=== PATIENT | male | born 1960 | race Caucasian/White ===

== ENCOUNTER 2016-05-24 14:48 | Emergency (ER) | payer BC ==
[2016-05-24 15:13] VITALS: BP 152/94
--- NOTE | 2016-05-24 15:36 | UC ---
Lower Extremity/Ankle HPI - HPI Summary HPI Summary: ONE WEEK HISTORY OF LEFT CALF PAIN, BEGAN AFTER TRIP TO [facility]. NO CHEST PAIN, NO SHORTNESS OF BREATH. NO PREVIOUS HISTORY OF CLOT OR PE'S NO FAMILY HISTORY. NO CANCER HISTORY. NONSMOKER. NO REDNESS. MILD EDEMA AROUND ANKLE. - History of Current Complaint Chief Complaint: UCLowerExtremity Stated Complaint: LEFT CALF PAIN Time Seen by Provider: 05/24/16 15:18 Hx Obtained From: Patient Onset/Duration: Gradual Onset, Lasting Weeks, Still Present Severity Initially: Mild Severity Currently: Mild Aggravating Factor(s): Ambulation Able to Bear Weight: Yes - Risk Factors Gout Risk Factors: Age Over 40, Male DVT Risk Factors: Recent Travel Septic Arthritis Risk Factor: Negative - Allergies/Home Medications Allergies/Adverse Reactions: Allergies Allergy/AdvReac Type Severity Reaction Status Date / Time No Known Allergies Allergy Verified 05/24/16 15:07 PMH/Surg Hx/FS Hx/Imm Hx Previously Healthy: Yes Endocrine History Of: Denies: Diabetes, Thyroid Disease, Hyperthyroidism, Hypothyroidism Cardiovascular History Of: Denies: Cardiac Disorders, Hypertension Respiratory History Of: Denies: COPD, Asthma GI/ History Of: Denies: Ulcer Neurological History Of: Denies: TIA, Seizures Psychological History Of: Denies: Anxiety, Depression - Surgical History Surgical History: Yes Surgery Procedure, Year, and Place: [facility] - Family History Known Family History: Negative: Cardiac Disease, Respiratory Disease, Blood Disorder - Social History Occupation: Employed Full-time - MANAGER [employer] Alcohol Use: None Substance Use Type: None Smoking Status (MU): Never Smoked Tobacco Have You Smoked in the Last Year: No Review of Systems Constitutional: Negative Skin: Negative Eyes: Negative ENT: Negative Respiratory: Negative Gastrointestinal: Negative Genitourinary: Negative Motor: Negative Neurovascular: Negative Musculoskeletal: Calf Tenderness, Myalgia - LEFT CALF PAIN Neurological: Negative Psychological: Negative All Other Systems Reviewed And Are Negative: Yes Physical Exam Triage Information Reviewed: Yes Appearance: Well-Appearing, No Pain Distress, Well-Nourished Vital Signs: Initial Vital Signs Temp 98 F 05/24/16 15:07 Pulse 67 05/24/16 15:07 Resp 18 05/24/16 15:07 BP 152/94 05/24/16 15:07 Pulse Ox 97 05/24/16 15:07 Vital Signs Reviewed: Yes Eye Exam: Normal Eyes: Positive: Conjunctiva Clear ENT Exam: Normal ENT: Positive: Normal ENT inspection, Hearing grossly normal, Pharynx normal, TMs normal Dental Exam: Normal Neck exam: Normal Neck: Positive: Supple, Nontender, No Lymphadenopathy Respiratory Exam: Normal Respiratory: Positive: Chest non-tender, Lungs clear, Normal breath sounds, No respiratory distress, No accessory muscle use Cardiovascular Exam: Normal Cardiovascular: Positive: RRR, No Murmur, Pulses Normal Abdominal Exam: Normal Abdomen Description: Positive: Nontender, No Organomegaly Musculoskeletal Exam: Normal Musculoskeletal: Positive: Strength Intact, ROM Intact, Edema @ - VERY MILD LEFT ANKLE Neurological Exam: Normal Psychological Exam: Normal Skin Exam: Normal Lower Extremity Course/Dx - Course Course Of Treatment: NO ULTRSOUND AVAILABLE AT CONVENIENT CARE. PATIENT ELECTED TO GO TO ED BY PRIVATE CAR. - Differential Dx/Diagnosis Differential Diagnosis/HQI/PQRI: Arthritis, Cellulitis, DVT, Fracture (Closed), Phlebitis, Sprain, Strain Provider Diagnoses: LEFT CALF PAIN - Physician Notifications Discussed Patient Care With: DR ESPINO Time Discussed With Above Provider: 15:20 Instructed by Provider To: MD Will See In ED Discharge - Discharge Plan Condition: Stable Disposition: [facility]
== END 2016-05-24 15:37 | disposition short-term general hospital (02) ==
LOC: UCEAST 14:48
DX: M79.662 Pain in left lower leg (principal)
CPT/HCPCS: 99212; G0463

== ENCOUNTER 2016-05-24 15:58 | Emergency (ER) | payer BC ==
--- NOTE | 2016-05-24 17:10 | RAD ---
INDICATION: Pain and swelling. COMPARISON: None TECHNIQUE: Duplex interrogation of the Lowerextremity was performed. FINDINGS: Deep veins: The common femoral, great saphenous, profunda femoris, proximal, mid, and distal deep femoral, popliteal, and peroneal veins are patent. There is thrombosis of one of the posterior tibial veins and the paired posterior tibial vein may also contain thrombus. There is normal compressibility, augmentation, and phasic flow. Superficial veins: There are no findings of superficial thrombophlebitis. Popliteal fossa:There is no evidence of a popliteal cyst. Soft tissues:There are no soft tissue abnormalities. IMPRESSION: DEEP VENOUS THROMBOSIS IN ONE OR POSSIBLY BOTH OF THE POSTERIOR TIBIAL VEINS. THE REMAINING VENOUS STRUCTURES ARE PATENT.
[2016-05-24 18:41] LABS: Hematocrit 50 % (42-52); Hemoglobin 17.2 g/dl (14.0-18.0); Mean Corpuscular HGB Conc 35 g/dl (31-36); Mean Corpuscular Hemoglobin 32 pg (27-31); Mean Corpuscular Volume 93 fL (80-94); Mean Platelet Volume 8 um3 (7.4-10.4); Red Blood Count 5.36 10^6/ul (4.0-5.4); Red Cell Distribution Width 12 % (10.5-15); White Blood Count 7.4 10^3/ul (3.5-10.8)
[2016-05-24 18:55] LABS: Albumin 4.2 g/dL (3.2-5.2); BUN/Creatinine Ratio 17.5 (8-20); Calcium 9.5 mg/dL (8.6-10.3); EGFR African American 96.1 (>60); EGFR Non-African American 74.7 (>60); Globulin 3.5 g/dL (2-4); Potassium 3.6 mmol/L (3.5-5.0); Total Bilirubin 0.5 mg/dL (0.2-1.0); Total Protein 7.7 g/dL (6.4-8.9)
[2016-05-24] MEDS ORDERED: Rivaroxaban TAB(*) 15 MG PO ONE (19:19)
[2016-05-24 20:05] VITALS: BP 149/93
--- NOTE | 2016-05-26 13:36 | ED ---
Lower Extremity - HPI Summary HPI Summary: Patient arrives to ED with CC of left calf pain X 1 week. Otherwise healthy. States he has been traveling often and arrived home 1 week ago. Patient endorses left ankle and calf swelling, pain behind the knee which is worse while walking. Describes the discomfort as a tightness which improves while massaging the area. Denies MENDES, ankle or knee pain. Denies blood or clotting disorders. Denies significant health history and takes no medications. Patient is active and runs several miles daily. Denies recent surgery or history of previous DVT's. Denies SOB. Denies numbness or tingling in lower extremity. - History of Current Complaint Chief Complaint: EDExtremityLower Stated Complaint: LEG PAIN/RECENT AIR TRAVEL-[facility] XFER Time Seen by Provider: 05/24/16 16:18 Hx Obtained From: Patient Onset/Duration: Weeks Severity Initially: Moderate Severity Currently: Moderate Pain Intensity: 5 Pain Scale Used: 0-10 Numeric Timing: Constant Location: Is Discrete @ - posterior proximal calf Character Of Pain: Dull, Aching Associated Signs And Symptoms: Positive: Swelling Aggravating Factor(s): Movement, Other - walking Alleviating Factor(s): Rest Able to Bear Weight: Yes Legs: 1 - cramping pain - Risk Factors Gout Risk Factors: Age Over 40, Male DVT Risk Factors: Recent Travel Septic Arthritis Risk Factor: Negative - Allergies/Home Medications Allergies/Adverse Reactions: Allergies Allergy/AdvReac Type Severity Reaction Status Date / Time No Known Allergies Allergy Verified 05/24/16 16:00 PMH/Surg Hx/FS Hx/Imm Hx Previously Healthy: Yes Endocrine/Hematology History: Denies: Hx Diabetes, Hx Thyroid Disease Cardiovascular History: Denies: Hx Hypercholesterolemia, Hx Hypertension, Hx Peripheral Vascular Disease Respiratory History: Denies: Hx Asthma, Hx Chronic Obstructive Pulmonary Disease (COPD) GI History: Denies: Hx Ulcer Musculoskeletal History: Denies: Hx Arthritis, Hx Osteoporosis Sensory History: Denies: Hx Cataracts, Hx Contacts or Glasses, Hx Glaucoma Opthamlomology History: Denies: Hx Cataracts, Hx Contacts or Glasses, Hx Glaucoma Neurological History: Denies: Hx Headaches, Hx Seizures, Hx Transient Ischemic Attacks (TIA) Psychiatric History: Denies: Hx Anxiety, Hx Depression - Surgical History Surgery Procedure, Year, and Place: [facility] - Immunization History Hx Pertussis Vaccination: No Immunizations Up to Date: No Infectious Disease History: No Infectious Disease History: Reports: Hx Shingles Denies: Hx Hepatitis, Hx Human Immunodeficiency Virus (HIV), Traveled Outside the [place] in Last 30 Days - Family History Known Family History: Negative: Cardiac Disease, Respiratory Disease, Blood Disorder - Social History Occupation: Employed Full-time Lives: With Family Alcohol Use: None Hx Substance Use: No Substance Use Type: Reports: None Hx Tobacco Use: No Smoking Status (MU): Never Smoked Tobacco Have You Smoked in the Last Year: No Review of Systems Constitutional: Negative Eyes: Negative Cardiovascular: Negative Respiratory: Negative Positive: Edema - left ankle and calf Skin: Negative Neurological: Negative Psychological: Normal All Other Systems Reviewed And Are Negative: Yes Physical Exam Triage Information Reviewed: Yes Vital Signs On Initial Exam: Initial Vitals Temp Pulse Resp BP Pulse Ox 97.4 F 63 18 161/96 100 05/24/16 16:00 05/24/16 16:00 05/24/16 16:00 05/24/16 16:00 05/24/16 16:00 Vital Signs Reviewed: Yes Appearance: Positive: Well-Appearing, No Pain Distress, Well-Nourished Skin: Positive: Warm, Skin Color Reflects Adequate Perfusion Head/Face: Positive: Normal Head/Face Inspection, Temporal Artery Tenderness Eyes: Positive: Normal, EOMI, KATIUSKA, Conjunctiva Clear Neck: Positive: Supple, Nontender, No Lymphadenopathy Respiratory/Lung Sounds: Positive: Clear to Auscultation, Breath Sounds Present Cardiovascular: Positive: Normal, RRR, Leg Edema Left - 1+ lower calf extremity Musculoskeletal: Positive: Normal, Strength/ROM Intact, Pain @ - achy posterior proximal calf pain and flexor knee pain Neurological: Positive: Speech Normal Psychiatric: Positive: Normal AVPU Assessment: Alert Diagnostics - Vital Signs Vital Signs Temp Pulse Resp BP Pulse Ox 05/24/16 19:55 98.0 F 64 16 149/93 05/24/16 18:57 97.4 F 69 16 153/90 100 05/24/16 16:00 97.4 F 63 18 161/96 100 - Laboratory Lab Results: Lab Results 05/24/16 05/24/16 05/24/16 Range/Units 18:30 18:30 18:30 WBC 7.4 (3.5-10.8) 10^3/ul RBC 5.36 (4.0-5.4) 10^6/ul Hgb 17.2 (14.0-18.0) g/dl Hct 50 (42-52) % MCV 93 (80-94) fL MCH 32 H (27-31) pg MCHC 35 (31-36) g/dl RDW 12 (10.5-15) % Plt Count 181 (150-450) 10^3/ul MPV 8 (7.4-10.4) um3 Neut % (Auto) 61.5 (38-83) % Lymph % (Auto) 26.1 (25-47) % Mcclain % (Auto) 8.3 (1-9) % Eos % (Auto) 3.1 (0-6) % Baso % (Auto) 1.0 (0-2) % Absolute Neuts (auto) 4.5 (1.5-7.7) 10^3/ul Absolute Lymphs (auto) 1.9 (1.0-4.8) 10^3/ul Absolute Monos (auto) 0.6 (0-0.8) 10^3/ul Absolute Eos (auto) 0.2 (0-0.6) 10^3/ul Absolute Basos (auto) 0.1 (0-0.2) 10^3/ul Absolute Nucleated RBC 0.01 10^3/ul Nucleated RBC % 0.1 INR (Anticoag Therapy) 1.08 (0.89-1.11) APTT 29.9 (26.0-36.3) seconds Sodium 137 (133-145) mmol/L Potassium 3.6 (3.5-5.0) mmol/L Chloride 102 (101-111) mmol/L Carbon Dioxide 26 (22-32) mmol/L Anion Gap 9 (2-11) mmol/L BUN 18 (6-24) mg/dL Creatinine 1.03 (0.67-1.17) mg/dL Est GFR ( Amer) 96.1 (>60) Est GFR (Non-Af Amer) 74.7 (>60) BUN/Creatinine Ratio 17.5 (8-20) Glucose 89 (70-100) mg/dL Calcium 9.5 (8.6-10.3) mg/dL Total Bilirubin 0.50 (0.2-1.0) mg/dL AST 25 (13-39) U/L ALT 17 (7-52) U/L Alkaline Phosphatase 92 (34-104) U/L Total Protein 7.7 (6.4-8.9) g/dL Albumin 4.2 (3.2-5.2) g/dL Globulin 3.5 (2-4) g/dL Albumin/Globulin Ratio 1.2 (1-3) Result Diagrams: 05/24/16 18:30 05/24/16 18:30 Lab Statement: Any lab studies that have been ordered have been reviewed, and results considered in the medical decision making process. Lower Extremity Course/Dx - Course Course Of Treatment: Patient presented with DVT after travel. US performed on L leg. US read as 2 small DVT present in tibial vein. Provider discussed risks and benefits of anticoagulants. Placed on Xarelto for 21 days. Follow up with PCP for further evaluation and likely extending medication management. Return precautions and risks explained to patient. Patient is reliable, non-diabetic, no history of blood clots. - Diagnoses Differential Diagnosis/HQI/PQRI: Positive: Cellulitis, DVT, Sprain, Strain Provider Diagnoses: Deep vein thrombosis (DVT) of tibial vein of left lower extremity Discharge - Discharge Plan Condition: Stable Disposition: HOME Prescriptions: Rivaroxaban TAB(*) [Xarelto 15 mg(*)] 15 mg PO BID #42 tab Patient Education Materials: Rivaroxaban (By mouth), Leg Edema (ED) Referrals: Francisco Harmon MD [Primary Care Provider] - Additional Instructions: Come back to ED with worsening pain or leg edema or shortness of breath. Follow up with your primary in the next few weeks. Continue Xarelto as prescribed for 21 days. DVT: What is deep vein thrombosis? Deep vein thrombosis is the medical term for blood clots in the deep veins of the leg (figure 1). Deep vein thrombosis, or "DVT" for short, can be dangerous. If a blood clot forms inside a blood vessel, it can clog the vessel and keep blood from getting where it needs to go. When that happens to one of the veins deep within the leg, blood can back up and cause swelling and pain. Another problem with blood clots in veins is that they can travel to other parts of the body and clog blood vessels there. Blood clots that form in the legs, for example, can end up blocking blood vessels in the lungs. This can make it hard to breathe and sometimes, when they are large, can lead to . When blood clots travel to the lungs doctors call it "pulmonary embolism" or "PE." What are the symptoms of DVT? DVT can cause: Swelling Pain Warmth and redness in the involved leg Sometimes clots form in the veins that are closer to the surface of the skin, called the superficial veins. Those blood clots cause a different set of symptoms. Blood clots in the veins near the surface of the skin are more painful and cause redness or infection. These clots sometimes also cause the veins to harden and bulge into ridges that look like cords. This is most common with the veins below the knee. If you think you have a blood clot in your leg, call your doctor or nurse right away. Blood clots in the veins near the surface of the skin are less dangerous. But blood clots in the deep veins of the leg are more serious. Your doctor or nurse can run tests to find out if you do have a clot that needs to be treated. What are the symptoms of blood clots in the lungs? Blood clots in the lungs can cause: Panting, shortness of breath, or trouble breathing Sharp, knife-like chest pain when you breathe in or strain Coughing or coughing up blood A rapid heartbeat If you get any of these symptoms, especially if they happen over a short period of time (hours or days) or get worse quickly, call for an ambulance (in the [place] and [place], dial [id number]). At the hospital, doctors can run tests to find out if you do have a clot. Blood clots in the lungs can lead to . That's why it's important to act fast and find out if there is a clot. How is DVT treated? DVT is treated with medicines that keep the clot from getting bigger and travelling to the lung. Some of these medicines come in shots and others come in pills. Most people being treated for a blood clot in the leg are treated first in the hospital. People who have had clots are usually put on medicines to prevent future blood clots. These medicines are called "anticoagulants," "blood thinners," or "anti- clotting medicines." Almost everyone is put on an anti-clotting medicine that comes in a pill for at least 3 months (and usually longer). Some people are put on a medicine that is injected under the skin called heparin. This might be for a few days, or longer if for some reason they can't take pills. Anti-clotting medicines do not dissolve existing blood clots, but they do keep them from getting bigger. They also help keep new blood clots from forming. Being on an anti-clotting medicine for a few months is important because it gives the body time to dissolve the old clot. It's also important because people who have a clot are at risk of developing another clot, especially in the first few months. There are a few different anti-clotting medicines that come in pill form. They include warfarin (brand name: Coumadin), rivaroxaban (brand name: Xarelto), apixaban (brand name: Eliquis), and edoxaban (brand name: Savaysa) (table 1). If your doctor puts you on an anti-clotting medicine, take it exactly as directed. If you forget or miss a dose, call your doctor to find out what to do. When you start taking an anti-clotting medicine, you will need to have your blood tested. If you are taking warfarin, you will need regular blood tests to check how your blood is clotting. If there are changes in your medical condition or test results your doctor might need to adjust your dose. At the wrong doses, the drug can either stop working or lead to serious bleeding. In fact, bleeding is a risk with all the anti-clotting medicines, so you and your doctor should also always watch out for signs of bleeding. People who cannot take medicines to treat clots, or who do not get enough benefit from the medicines, can get a different treatment. This is called an "inferior vena cava filter" (also called an IVC filter). The inferior vena cava is the large vein that carries blood from your legs and the lower half of your body back up to your heart. IVC filters go inside the inferior vena cava. They filter and trap any large clots that form below the location of the filter. Your doctor might suggest one of these filters for you if: You cannot safely take warfarin or another anti-clotting medicine You form clots even while on warfarin or another anti-clotting medicine You have a dangerous bleeding problem while on warfarin or another anti- clotting medicine You are so sick that if a blood clot that travels from your legs to your lungs it could kill you In some cases, a person has a clot that is severe enough to cause gangrene (cut off the blood supply to your leg). If this happens, doctors can give medicine to dissolve the clot. This is sometimes called "clot busting" medicine, and is given through a catheter (a small tube inserted into the vein). In some cases, doctors will do surgery to remove the clot. Can I do anything on my own to prevent blood clots? Yes. People sometimes form clots because they have been sitting still for too long. People who travel on long airplane flights, for example, are at increased risk of blood clots. Here are some things you can do to help prevent a clot during a long flight: Stand up and walk around every 1 to 2 hours Do not smoke just before your trip Wear loose, comfortable clothes Shift your position while seated, and move your legs and feet often Drink plenty of fluids Wear knee-high compression stockings Avoid alcohol and medicines that make you sleepy, because they can impair your ability to move around
== END 2016-05-24 19:55 | disposition home or self-care (01) ==
LOC: ED 15:58
DX: I82.442 Acute embolism and thrombosis of left tibial vein (principal)
CPT/HCPCS: 36415; 80053; 85025; 85610; 85730; 99283

== ENCOUNTER 2018-06-08 10:34 | Emergency (ER) | payer BC ==
[2018-06-08 11:37] VITALS: BP 140/98
--- NOTE | 2018-06-08 12:01 | UC ---
Dental HPI - HPI Summary HPI Summary: 57 y/o male presents to the urgent care c/o left upper gum swelling and tooth pain since 06/05/2018. Pt reports pain is dull aching 5/10 radiating to his left cheek. Pt has taken Advil PO to alleviate symptoms. Pt denies fever, trismus, SOB, chest pain, abdominal pain, N/V/D. Pt has a dentist, but was unable to get an appt today. - History of Current Complaint Chief Complaint: UCDentalProblem Stated Complaint: MOUTH PAIN Time Seen by Provider: 06/08/18 11:42 Hx Obtained From: Patient Onset/Duration: Gradual Onset, Lasting Days - 3 days, Still Present, Worse Since - today Severity: Moderate Pain Intensity: 5 Pain Scale Used: 0-10 Numeric Aggravating Factor(s): Chewing Alleviating Factor(s): OTC Meds - Allergies/Home Medications Allergies/Adverse Reactions: Allergies Allergy/AdvReac Type Severity Reaction Status Date / Time No Known Allergies Allergy Verified 06/08/18 11:37 PMH/Surg Hx/FS Hx/Imm Hx Previously Healthy: Yes - Pt denies PMHX - Surgical History Surgical History: Yes Surgery Procedure, Year, and Place: [facility] - Family History Known Family History: Positive: Diabetes Negative: Cardiac Disease, Respiratory Disease, Blood Disorder - Social History Occupation: Employed Full-time Lives: With Family Alcohol Use: Occasionally Substance Use Type: None Smoking Status (MU): Never Smoked Tobacco Have You Smoked in the Last Year: No Review of Systems All Other Systems Reviewed And Are Negative: Yes Constitutional: Positive: Negative Skin: Positive: Negative Eyes: Positive: Negative ENT: Positive: Dental Pain - left upper jaw posterior molar pain w/ swelling Respiratory: Positive: Negative Cardiovascular: Positive: Negative Gastrointestinal: Positive: Negative Genitourinary: Positive: Negative Motor: Positive: Negative Neurovascular: Positive: Negative Musculoskeletal: Positive: Negative Neurological: Positive: Negative Psychological: Positive: Negative Is Patient Immunocompromised?: No Physical Exam - Summary Physical Exam Summary: Vital Signs Reviewed: Yes General: Well-Appearing, Well-Nourished male sitting in the examining table w/ o any respiratory or pain distress Eyes: Positive: Conjunctiva Clear - PERRLA, EOMI, ENT: Positive: Normal ENT inspection, Hearing grossly normal, Pharynx normal, TMs normal - B/L external ear canals clear,. Negative: Tonsillar swelling, Tonsillar exudate, Trismus Dental: Positive: Gross Decay/Caries#16, mild Abscess @ - gingival swelling and erythema, tender to percussion. involves tissue surrounding themolar #16 Cervical Lymphadenopathy - anterior positive Neck: Positive: Supple Respiratory: Positive: Chest non-tender, Lungs clear, Normal breath sounds, No respiratory distress Cardiovascular: Positive: RRR, No Murmur, Pulses Normal, Brisk Capillary Refill Abdomen Description: Positive: Nontender, No Organomegaly, Soft. Negative: CVA Tenderness (R), CVA Tenderness (L) Bowel Sounds: Positive: Present Musculoskeletal: Positive: Strength Intact, ROM Intact, No Edema Neurological Exam: Normal Psychological Exam: Normal Skin Exam: Normal Triage Information Reviewed: Yes Vital Signs: Initial Vital Signs Temp 98.3 F 06/08/18 11:34 Pulse 65 06/08/18 11:34 Resp 12 06/08/18 11:34 BP 140/98 06/08/18 11:34 Pulse Ox 100 06/08/18 11:34 Dental Complaint Course/Dx - Course Course Of Treatment: 57 y/o male presents to the urgent care c/o left upper gum swelling and tooth pain since 06/05/2018. Pt reports pain is dull aching 5/10 radiating to his left cheek. Pt has taken Advil PO to alleviate symptoms. Pt denies fever, trismus, SOB, chest pain, abdominal pain, N/V/D. Pt has a dentist , but was unable to get an appt today. hx obtained. Pt with dental abscess on around molar #16 on examination. Pt given viscous Lidocaine at the clinic to alleviate symptoms. Pt Rx Clindamycin PO, Ibuprofen PO and Lidocaine for pain. Pt strongly advised to f/u with Dentist as soon as possible further evaluation and treatment. Pt's BP is elevated today advised to decrease salt in diet, monitor BP and f/u with PCP for further management. Pt understood and agreed with plan of care. Left the clinic ambulating. - Differential Dx/Diagnosis Differential Diagnosis/Dx: Dental Abscess, Dental Caries, Odontogenic Pain, Peridontic Disease, Peritonsillar Abcess, Tonsillitis Provider Diagnosis: Dental abscess, Elevated BP without diagnosis of hypertension Discharge - Sign-Out/Discharge Documenting (check all that apply): Patient Departure - D/c home All imaging exams completed and their final reports reviewed: No Studies - Discharge Plan Condition: Stable Disposition: HOME Prescriptions: Clindamycin Cap(NF) [Clindamycin Cap 300 mg Cap(NF)] 300 mg PO TID #30 cap Ibuprofen TAB* [Motrin TAB* 800 MG] 800 mg PO Q6H PRN #30 tab PRN Reason: dental pain Lidocaine 2% VISCOUS* [Xylocaine 2% Viscous*] 15 ml SWISH SPIT Q6H PRN #1 btl PRN Reason: dental pain Patient Education Materials: Dental Abscess (ED), Low-Sodium Diet (ED) Referrals: Francisco Harmon MD [Primary Care Provider] - 3 Days Additional Instructions: 1-Please take full course of antibiotic to avoid resistance. Please take yogurts with probiotics to protect your GI system 2- Take Ibuprofen PO q6-8hrs as instructed after meals to alleviate pain and swelling. Take also viscous Lidocaine as directed if pain is severe 3- F/u with your Dentist or Dental List provided as soon as possible for further treatment. 4- If symptoms do not improve or worsen please return to the urgent care or f/u with your PCP for further evaluation and treatment. 5- Your BP is elevated today. please decrease salt in your diet, monitor BP and if it continues to be elevated please f/u with your PCP for further management. - Billing Disposition and Condition Condition: STABLE Disposition: Home
== END 2018-06-08 12:22 | disposition home or self-care (01) ==
LOC: UCEAST 10:34
DX: K04.7 Periapical abscess without sinus (principal); R03.0 Elevated blood-pressure reading, without diagnosis of hypertension
CPT/HCPCS: 99212; G0463

== ENCOUNTER 2019-06-28 20:04 | Emergency (ER) | payer BC ==
--- NOTE | 2019-06-28 21:16 | ED ---
Lower Extremity - HPI Summary HPI Summary: This patient is a 58 y/o male presenting to [facility] c/o right calf pain since 2 days ago on 06/26/19. Patient reports his right calf pain got better yesterday but worsened today. He currently rates his right calf pain 7/10 in severity. Denies associated fever, shortness of breath, chest pain. He states this pain is similar to when he had a DVT 3 years ago after a flight. Patient denies any recent flying. Patient denies any recent long car rides. He denies tobacco, drug, and alcohol use. No other PMHx. Home Medications Medication Instructions Recorded Confirmed Type Clindamycin Cap(NF) [Clindamycin 300 mg PO TID #30 cap 06/08/18 Rx Cap 300 mg Cap(NF)] Ibuprofen TAB* [Motrin TAB* 800 MG] 800 mg PO Q6H PRN #30 tab 06/08/18 Rx Lidocaine 2% VISCOUS* [Xylocaine 15 ml SWISH SPIT Q6H PRN #1 btl 06/08/18 Rx 2% Viscous*] - History of Current Complaint Chief Complaint: EDExtremityLower Stated Complaint: RT LEG PAIN PER PT Time Seen by Provider: 06/28/19 21:07 Hx Obtained From: Patient Mechanism Of Injury: Other - no known trauma Onset of Pain: Days Onset/Duration: Days Severity Currently: Severe Pain Intensity: 7 Pain Scale Used: 0-10 Numeric Timing: Lasting Days Location: Is Discrete @ - right calf Associated Signs And Symptoms: Positive: Negative Aggravating Factor(s): Nothing Alleviating Factor(s): Nothing Able to Bear Weight: Yes Related History: Other - hx of DVT 3 years ago - Allergies/Home Medications Allergies/Adverse Reactions: Allergies Allergy/AdvReac Type Severity Reaction Status Date / Time No Known Allergies Allergy Verified 06/28/19 20:07 Home Medications: Home Medications Rivaroxaban TAB(*) [Xarelto 15 mg(*)] 15 mg PO BID 21 Days #42 tab 06/28/19 [Rx] PMH/Surg Hx/FS Hx/Imm Hx Endocrine/Hematology History: Denies: Hx Diabetes, Hx Thyroid Disease Cardiovascular History: Reports: Hx Deep Vein Thrombosis Denies: Hx Hypercholesterolemia, Hx Hypertension, Hx Peripheral Vascular Disease Respiratory History: Denies: Hx Asthma, Hx Chronic Obstructive Pulmonary Disease (COPD) GI History: Denies: Hx Ulcer Musculoskeletal History: Denies: Hx Arthritis, Hx Rheumatoid Arthritis, Hx Osteoporosis Sensory History: Denies: Hx Cataracts, Hx Contacts or Glasses, Hx Glaucoma Opthamlomology History: Denies: Hx Cataracts, Hx Contacts or Glasses, Hx Glaucoma Neurological History: Denies: Hx Headaches, Hx Seizures, Hx Transient Ischemic Attacks (TIA) Psychiatric History: Denies: Hx Anxiety, Hx Depression - Surgical History Surgical History: Yes Surgery Procedure, Year, and Place: WISDOM THEETH EXTRACTION Infectious Disease History: Yes Infectious Disease History: Reports: Hx Shingles Denies: Hx Hepatitis, Hx Human Immunodeficiency Virus (HIV), Traveled Outside the [place] in Last 30 Days - Family History Known Family History: Positive: Diabetes Negative: Cardiac Disease, Respiratory Disease, Blood Disorder - Social History Alcohol Use: Occasionally Hx Substance Use: No Substance Use Type: Reports: None Hx Tobacco Use: No Smoking Status (MU): Never Smoked Tobacco Have You Smoked in the Last Year: No Review of Systems Negative: Fever Negative: Chest Pain Negative: Shortness Of Breath Musculoskeletal: Other - POSITIVE: right calf pain All Other Systems Reviewed And Are Negative: Yes Physical Exam - Summary Physical Exam Summary: VITAL SIGNS: Reviewed. GENERAL: Patient is a well-developed and nourished male who is lying comfortable in the stretcher. Patient is not in any acute respiratory distress. HEAD AND FACE: No signs of trauma. No ecchymosis, hematomas or skull depressions. No sinus tenderness. EYES: PERRLA, EOMI x 2, No injected conjunctiva, no nystagmus. EARS: Hearing grossly intact. Ear canals and tympanic membranes are within normal limits. MOUTH: Oropharynx within normal limits. NECK: Supple, trachea is midline, no adenopathy, no JVD, no carotid bruit, no c- spine tenderness, neck with full ROM. CHEST: Symmetric, no tenderness at palpation LUNGS: Clear to auscultation bilaterally. No wheezing or crackles. CVS: Regular rate and rhythm, S1 and S2 present, no murmurs or gallops appreciated. ABDOMEN: Soft, non-tender. No signs of distention. No rebound no guarding, and no masses palpated. Bowel sounds are normal. EXTREMITIES: FROM in all major joints, no edema, no cyanosis or clubbing. Patient has positive right calf tenderness at palpation. Positive Homans' sign. NEURO: Alert and oriented x 3. No acute neurological deficits. Speech is normal and follows commands. SKIN: Dry and warm Triage Information Reviewed: Yes Vital Signs On Initial Exam: Initial Vitals Temp Pulse Resp BP Pulse Ox 97.1 F 67 15 160/99 98 06/28/19 20:06 06/28/19 20:06 06/28/19 20:06 06/28/19 20:06 06/28/19 20:06 Vital Signs Reviewed: Yes Procedures - Sedation Patient Received Moderate/Deep Sedation with Procedure: No Diagnostics - Vital Signs Vital Signs Temp Pulse Resp BP Pulse Ox 06/28/19 20:06 97.1 F 67 15 160/99 98 - Laboratory Result Diagrams: 06/28/19 21:26 06/28/19 21:26 Lab Statement: Any lab studies that have been ordered have been reviewed, and results considered in the medical decision making process. Lower Extremity Course/Dx - Course Assessment/Plan: This patient is a 58 y/o male presenting to [facility] c/o right calf pain since 2 days ago on 06/26/19. Patient reports his right calf pain got better yesterday but worsened today. He currently rates his right calf pain 7/ 10 in severity. Denies associated fever, shortness of breath, chest pain. He states this pain is similar to when he had a DVT 3 years ago after a flight. Patient denies any recent flying. Patient denies any recent long car rides. He denies tobacco, drug, and alcohol use. No other PMHx. His right lower extremity ultrasound is pending. The patient was signed out to Dr. Rosario to follow-up the ultrasound and further disposition of the patient. - Diagnoses Provider Diagnoses: DVT (deep venous thrombosis) Discharge ED - Sign-Out/Discharge Documenting (check all that apply): Sign-Out Patient Signing out patient TO: Todd Rosario - pending US of RLE - Discharge Plan Condition: Stable Disposition: HOME Prescriptions: Rivaroxaban TAB(*) [Xarelto 15 mg(*)] 15 mg PO BID 21 Days #42 tab Patient Education Materials: Deep Vein Thrombosis (ED) Referrals: Francisco Harmon MD [Primary Care Provider] - Additional Instructions: You were seen in the emergency department for right calf pain. Your ultrasound showed a DVT. Please take Xarelto 15 mg twice a day, for 21 days. After 21 days you'll take a 20 mg dose once a day. Please follow up with your primary care doctor in next 2-3 days and return to emergency department for worsening pain, trouble breathing, chest pain or concerning symptoms. It was a pleasure taking care of you today. - Billing Disposition and Condition Condition: STABLE - Attestation Statements Document Initiated by Carmen: Yes Documenting Scribe: Laura Vidal Provider For Whom Carmen is Documenting (Include Credential): Chema Conn MD Scribe Attestation: Laura Campbell, scribed for Chema Conn MD on 06/29/19 at 1059. Scribe Documentation Reviewed: Yes Provider Attestation: The documentation as recorded by the Laura ruiz accurately reflects the service I personally performed and the decisions made by me, Chema Conn MD Status of Scribe Document: Viewed
[2019-06-28 21:36] LABS: ABS Basophils 0.1 10^3/ul (0-0.2); ABS Eosinophils 0.3 10^3/ul (0-0.6); ABS Lymphocytes 2.1 10^3/ul (1.0-4.8); ABS Monocytes 0.8 10^3/ul (0-0.8); ABS Neutrophils 5.7 10^3/ul (1.5-7.7); Eosinophil % 3.4 %; Hematocrit 47 % (42-52); Lymphocyte % 22.9 %; Mean Corpuscular HGB Conc 36 g/dL (31-36); Mean Corpuscular Hemoglobin 34 pg (27-31); Mean Corpuscular Volume 94 fL (80-94); Nucleated Red Blood Cells % 0.1; Platelet Count 169 10^3/uL (150-450); Red Blood Count 4.97 10^6 /uL (4.18-5.48); Red Cell Distribution Width 12 % (10-15)
[2019-06-28 21:54] LABS: ALT 29 U/L (7-52); Albumin 4.4 g/dL (3.2-5.2); Albumin/Globulin Ratio 1.5 (1-3); Alkaline Phosphatase 95 U/L (34-104); BUN/Creatinine Ratio 22.5 (8-20); Blood Urea Nitrogen 20 mg/dL (6-24); C Reactive Protein 4.07 mg/L (<8.01); CO2 Carbon Dioxide 26 mmol/L (22-32); Calcium 9.3 mg/dL (8.6-10.3); Chloride 105 mmol/L (101-111); EGFR African American 105.9 (>60); EGFR Non-African American 87.5 (>60); Globulin 2.9 g/dL (2-4); Glucose 94 mg/dL (70-100); Sodium 139 mmol/L (135-145); Total Protein 7.3 g/dL (6.4-8.9); Uric Acid 5.3 mg/dL (4.4-7.6)
--- NOTE | 2019-06-28 22:22 | ED ---
Progress - Progress Note Progress Note: 58 y/o M signed out from Dr. Conn at change of shift 06/28/2019 2200. Awaiting RLE US. Pending disposition. RLE US shows, per radiologist: Positive for DVT below the knee in right lower extremity. Occlusive thrombus in the right peroneal veins. ED physician has reviewed this report. Re-Evaluation - Re-Evaluation First Eval Re-Evaluation Time: 22:18 Comment: [facility] radiologist called to report RLE US findings Second Eval Re-Evaluation Time: 22:20 Comment: patient updated on RLE US findings Course/Dx - Course Course Of Treatment: +DVT US, INR and LFTs WNL, will start xarelto 15 mg BID, first dose given here - Diagnoses Provider Diagnoses: DVT (deep venous thrombosis) Discharge ED - Sign-Out/Discharge Documenting (check all that apply): Patient Departure - Discharge Plan Condition: Stable Disposition: HOME Prescriptions: Rivaroxaban TAB(*) [Xarelto 15 mg(*)] 15 mg PO BID 21 Days #42 tab Patient Education Materials: Deep Vein Thrombosis (ED) Referrals: Francisco Harmon MD [Primary Care Provider] - Additional Instructions: You were seen in the emergency department for right calf pain. Your ultrasound showed a DVT. Please take Xarelto 15 mg twice a day, for 21 days. After 21 days you'll take a 20 mg dose once a day. Please follow up with your primary care doctor in next 2-3 days and return to emergency department for worsening pain, trouble breathing, chest pain or concerning symptoms. It was a pleasure taking care of you today. - Billing Disposition and Condition Condition: STABLE Disposition: Home - Attestation Statements Document Initiated by Leninibe: Yes Documenting Scribe: Ericka Padilla Provider For Whom Carmen is Documenting (Include Credential): Todd Rosario MD Scribe Attestation: I, Ericka Padilla, scribed for Todd Rosario MD on 06/28/19 at 2246. Scribe Documentation Reviewed: Yes Provider Attestation: The documentation as recorded by the Ericka ruiz accurately reflects the service I personally performed and the decisions made by me, Todd Rosario MD Status of Scribe Document: Viewed
[2019-06-28] MEDS ORDERED: Rivaroxaban TAB(*) 15 MG PO ONE (22:24)
[2019-06-28 22:36] LABS: Anion Gap 8 mmol/L (2-11)
[2019-06-28 22:37] LABS: INR 1.16 (0.82-1.09)
[2019-06-28 23:15] VITALS: BP 137/76
== END 2019-06-28 23:49 | disposition home or self-care (01) ==
LOC: ED 20:04
DX: I82.451 Acute embolism and thrombosis of right peroneal vein (principal); Z79.01 Long term (current) use of anticoagulants
CPT/HCPCS: 36415; 80053; 84550; 85025; 85610; 86140; 99282